=== PATIENT | female | born 1935 | race African-American/Black ===

== ENCOUNTER 2022-05-23 13:15 | Inpatient (IN) | payer MEDICARE, BC ==
[~2022-05-23] VITALS: Ht 172.7 cm; Wt 99.6 kg
[~2022-05-23 13:15] MED LIST: ACET-3161; AMLODIPINE; BENAZEPRIL; LABE200T9; SIMV-343; TRAM50TA3; [UNRECOGNIZED DRUG - OTHER]
[2022-05-23] MEDS ORDERED: SODIUM CHLORIDE 0.9% 1,000 ML IV ONE ×2 (14:30→17:30)
[2022-05-23 16:05] LABS: HEMATOCRIT. 48.6 % (36.0-48.0); HEMOGLOBIN. 14.8 g/dL (12.0-16.0); MEAN CORPUSCULAR HEMOGLOBIN 25.7 pg (28.0-32.0); MEAN CORPUSCULAR VOLUME 84.3 fL (81.0-99.0); MEAN PLATELET VOLUME 9.7 fl (7.4-10.4); PLATELET 144 x1000/uL (130-400); RED BLOOD CELL COUNT 5.76 mill/uL (4.2-5.4); RED CELL DISTRIBUTION WIDTH 21.2 % (11.6-14.6)
[2022-05-23 16:12] LABS: CHLORIDE 99 mEq/L (98-107)
[2022-05-23 16:37] LABS: NUCLEATED RED BLOOD CELLS 2 /100 WBC
[2022-05-23 16:38] LABS: PLATELET ESTIMATE NORMAL
[2022-05-23] MEDS ORDERED: ASPIRIN 325MG EC TABLET PO ONE (17:30)
[2022-05-23 23:19] LABS: CLARITY URINE CLEAR (CLEAR); COLOR URINE YELLOW (YELLOW); KETONES URINE NEGATIVE (NEGATIVE); LEUKOCYTE ESTERASE URINE 1+ (NEGATIVE); NITRITE URINE NEGATIVE (NEGATIVE); OCCULT BLOOD URINE NEGATIVE (NEGATIVE); PH URINE 7.5 (4.5-8.0); PROTEIN URINE NEGATIVE (NEGATIVE); SPECIFIC GRAVITY URINE 1.007 (1.005-1.030); UROBILINOGEN URINE 0.2 E.U./dL (0.2-1.0)
[2022-05-23] MEDS: ASPIRIN 81MG TABLET PO SCH (23:36)
[2022-05-24] MEDS: SODIUM CHLORIDE 0.45% 1,000 ML IV SCH (08:30)
[2022-05-24 09:30] VITALS: BP 145/74
[2022-05-24] MEDS: AMLODIPINE 2.5MG TABLET PO SCH ×2 (10:38→21:24)
[2022-05-24] MEDS: ASPIRIN 81MG TABLET PO SCH (10:38)
[2022-05-24 11:39] LABS: INR 1.1; PROTHROMBIN TIME 12.1 sec (9.6-11.0)
[2022-05-24 11:48] LABS: CREATINE KINASE 49 IU/L (26-192)
[2022-05-24 12:00] VITALS: BP 132/62
[2022-05-24 14:31] LABS: HEPATITIS B SURFACE ANTIGEN NEGATIVE
[2022-05-24 16:00] VITALS: BP 138/73
[2022-05-24] MEDS: ENOXAPARIN 100MG/ML SYR SUBCUT SCH (16:04)
[2022-05-24] MEDS ORDERED: CLONIDINE 0.1MG TABLET PO PRN (16:45)
[2022-05-24] MEDS ORDERED: CARV25TA47 MT (18:06)
[2022-05-24] MEDS ORDERED: ROSU20TA2 PO (18:06)
[2022-05-24] MEDS ORDERED: AMLO10TA80 PO (18:06)
[2022-05-24] MEDS ORDERED: DONE10TA43 PO (18:06)
[2022-05-24] MEDS ORDERED: LISI20TA31 PO (18:06)
[2022-05-24] MEDS ORDERED: FURO20TA4 PO (18:06)
[2022-05-24] MEDS ORDERED: RIVA20TA PO (18:06)
[2022-05-24] MEDS ORDERED: GABA-532 PO (18:06)
[2022-05-24 20:00] VITALS: BP 143/75
[2022-05-24] MEDS: CARVEDILOL 3.125 MG TABLET PO SCH (21:24)
[2022-05-25] VITALS: BP 154/83
[2022-05-25] MEDS: SODIUM CHLORIDE 0.45% 1,000 ML IV SCH (02:07)
[2022-05-25 04:00] VITALS: BP 160/84
[2022-05-25 07:39] LABS: CHLORIDE 107 mEq/L (98-107)
[2022-05-25 07:40] LABS: BASOPHILS % 1.3 % (0.0-2.0); EOSINOPHILS % 3.1 % (0.0-5.0); LYMPHOCYTES % 50.6 % (20.0-50.0); MEAN CORPUSCULAR HEMOGLOBIN 29.7 pg (28.0-32.0); MEAN PLATELET VOLUME 7.9 fl (7.4-10.4); MONOCYTES % 11.8 % (2.0-8.0); NEUTROPHILS % 33.2 % (40.0-76.0); PLATELET 228 x1000/uL (130-400); RED BLOOD CELL COUNT 4.22 mill/uL (4.2-5.4)
[2022-05-25 07:47] LABS: HEMOGLOBIN. 12.5 g/dL (12.0-16.0)
[2022-05-25 07:48] LABS: MEAN CORPUSCULAR VOLUME 90.2 fL (81.0-99.0); RED CELL DISTRIBUTION WIDTH 15.1 % (11.6-14.6)
[2022-05-25 08:34] VITALS: BP 146/84
[2022-05-25] MEDS: ASPIRIN 81MG TABLET PO SCH (09:42)
[2022-05-25] MEDS: CARVEDILOL 3.125 MG TABLET PO SCH (09:43)
[2022-05-25] MEDS: AMLODIPINE 2.5MG TABLET PO SCH (09:43)
[2022-05-25] MEDS ORDERED: POTASSIUM CHLORIDE 20MEQ TABLET SR PO NR (11:00)
[2022-05-25 11:53] VITALS: BP 150/82
[2022-05-25] MEDS: ENOXAPARIN 100MG/ML SYR SUBCUT SCH (12:07)
[2022-05-25 14:41] VITALS: BP 145/82
[2022-05-25] MEDS ORDERED: ENOXAPARIN 100MG/ML SYR SUBCUT SCH (23:00)
[2022-05-26 09:10] LABS: ANTI-NUCLEAR ANTIBODIES DIRECT Negative (Negative)
== END 2022-05-25 14:00 | disposition home or self-care (01) | DRG 73 ==
LOC: ER 13:15 → MICUSO 18:26 → EDBEDREQ 18:31 → 3WST 05-24 09:34
PROVIDERS: ADMIT Internal Medicine; ATTEND Internal Medicine
DX: G90.8 Other disorders of autonomic nervous system (principal); E43 Unspecified severe protein-calorie malnutrition; I21.4 Non-ST elevation (NSTEMI) myocardial infarction; N17.0 Acute kidney failure with tubular necrosis; I13.0 Hypertensive heart and chronic kidney disease with heart failure and stage 1 through stage 4 chronic kidney disease, or unspecified chronic kidney disease; I95.9 Hypotension, unspecified; F03.A0 Unspecified dementia, mild, without behavioral disturbance, psychotic disturbance, mood disturbance, and anxiety; G47.33 Obstructive sleep apnea (adult) (pediatric); G89.29 Other chronic pain; N18.9 Chronic kidney disease, unspecified; R74.01 Elevation of levels of liver transaminase levels; E11.22 Type 2 diabetes mellitus with diabetic chronic kidney disease; E78.5 Hyperlipidemia, unspecified; Z20.822 Contact with and (suspected) exposure to COVID-19; I50.9 Heart failure, unspecified; H53.461 Homonymous bilateral field defects, right side; E11.43 Type 2 diabetes mellitus with diabetic autonomic (poly)neuropathy; I25.10 Atherosclerotic heart disease of native coronary artery without angina pectoris; E88.09 Other disorders of plasma-protein metabolism, not elsewhere classified; E66.01 Morbid (severe) obesity due to excess calories; E11.65 Type 2 diabetes mellitus with hyperglycemia; E87.6 Hypokalemia; I16.0 Hypertensive urgency; Z68.33 Body mass index [BMI] 33.0-33.9, adult; Z88.8 Allergy status to other drugs, medicaments and biological substances
CPT/HCPCS: 36415; 70544; 70547; 70553; 71045; 76705; 80048; 80053; 81003; 82550; 84484; 85025; 86038; 86160; 86803; 87340; 87426; 93005; 93306; 99291; J1650; J7030